=== PATIENT | male | born 1950 ===

== ENCOUNTER → 2016-07-11 | Outpatient (REF) | payer MEDICARE ==
[2016-07-11 18:22] LABS: CALCIUM LEVEL 8.5 MG/DL (8.8-10.2); CREATININE FOR GFR 1.68 MG/DL (0.70-1.30); GLOMERULAR FILTRATION RATE 43.6 (>49); POTASSIUM SERUM 4.7 MEQ/L (3.5-5.1); URIC ACID 6.4 MG/DL (3.5-7.2)
== END ==
LOC: M LAB REF 16:26
PROVIDERS: ATTEND Family Medicine
DX: M10.09 Idiopathic gout, multiple sites (principal); I11.9 Hypertensive heart disease without heart failure; I71.2 Thoracic aortic aneurysm, without rupture

== ENCOUNTER → 2017-08-05 | Outpatient (REF) | payer MEDICARE ==
[2017-08-05 18:44] LABS: BASO # 0.1 10^3/uL (0.0-0.2); BASO % 0.6 % (0.0-1.0); EOS # 0.8 10^3/uL (0.0-0.50); EOS % 8.5 % (0.0-3.0); HEMATOCRIT 43.5 % (42.0-52.0); HEMOGLOBIN 14.3 g/dl (13.5-17.5); IMMATURE GRANULOCYTE # 0.1 10^3/uL (0-0); IMMATURE GRANULOCYTE % 0.6 % (0-3.0); LYMPH # 2.2 10^3/uL (1.5-4.5); LYMPH % 22.1 % (24.0-44.0); MEAN CORPUSCULAR HEMOGLOBIN 35.8 pg (27.0-33.0); MEAN CORPUSCULAR HGB CONC 32.9 g/dl (32.0-36.5); MONO # 1.1 10^3/uL (0.0-0.8); NEUTROPHILS # 5.6 10^3/uL (1.8-7.7); NEUTROPHILS % 57.2 % (36.0-66.0); PLATELET COUNT, AUTOMATED 204 10^3/uL (150-450); RED BLOOD COUNT 3.99 10^6/uL (4.30-6.10); RED CELL DISTRIBUTION WIDTH 12.7 % (11.5-14.5); WHITE BLOOD COUNT 9.8 10^3/uL (4.0-10.0)
[2017-08-05 18:58] LABS: ANION GAP 9 MEQ/L (8-16); BLOOD UREA NITROGEN 35 MG/DL (7-18); CALCIUM LEVEL 9.2 MG/DL (8.8-10.2); CARBON DIOXIDE LEVEL 20 MEQ/L (21-32); CHLORIDE LEVEL 113 MEQ/L (98-107); CREATININE FOR GFR 1.57 MG/DL (0.70-1.30); GLUCOSE, FASTING 89 MG/DL (70-100); SODIUM LEVEL 142 MEQ/L (136-145); URIC ACID 7.9 MG/DL (3.5-7.2)
[2017-08-05 19:03] LABS: POTASSIUM SERUM 5.4 MEQ/L (3.5-5.1)
== END ==
LOC: M LAB REF 18:06
DX: I48.91 Unspecified atrial fibrillation (principal); I50.30 Unspecified diastolic (congestive) heart failure; M10.09 Idiopathic gout, multiple sites; I11.0 Hypertensive heart disease with heart failure
CPT/HCPCS: 84550

== ENCOUNTER → 2023-08-21 | Outpatient (REF) | payer MEDICARE, OTHER, MEDICAID | LOC: M LAB REF 16:27 | PROVIDERS: ATTEND Podiatrist Foot & Ankle Surgery | DX: L03.115 Cellulitis of right lower limb (principal) ==

== ENCOUNTER → 2024-01-21 | Outpatient (REF) | payer OTHER, MEDICAID ==
[2024-01-21 18:17] LABS: TOTAL PROTEIN,RANDOM URINE 15.3 MG/DL (0.0-14.0)
[2024-01-23 23:43] LABS: PROTEIN, TOTAL SO 7.6 g/dL (6.1-8.1)
[2024-01-26 12:32] LABS: ALBUMIN SO 4.3 g/dL (3.8-4.8); ALPHA 1 GLOBULINS SO 0.3 g/dL (0.2-0.3); ALPHA 2 GLOBULINS SO 0.7 g/dL (0.5-0.9); BETA 2 GLOBULIN SO 0.6 g/dL (0.2-0.5); BETA GLOBULIN SO 0.5 g/dL (0.4-0.6); GAMMA GLOBULINS SO 1.1 g/dL (0.8-1.7)
== END ==
LOC: M LAB REF 17:01
PROVIDERS: ATTEND Internal Medicine Nephrology
DX: N18.31 Chronic kidney disease, stage 3a (principal)